=== PATIENT | male | born 1980 | race Caucasian/White ===

== ENCOUNTER 2016-08-10 11:58 | Day surgery (SDC) | payer OTHER ==
--- NOTE | ~2016-08-10 | EGD ---
EGD REPORT [facility] [address] [id number] NAME: TREVIN ZHU : [birth year] STATUS : REG [facility]#: [id number] AGE: 36 ADM/REG DATE : 08/10/16 MR#: [id number] REPORT SERV DATE: 08/10/16 DICTATED BY: HASMUKH ELKINS DATE: 08/10/16 REPORT STATUS : Draft TRANSCRIBED BY: [facility] DATE: 08/10/16 Endoscopy Center Patient Name: Trevin Zhu Date of : 1980 Attending MD: HASMUKH ELKINS MD Procedure Date No Time: 08/10/2016 Procedure: Upper GI endoscopy Indications: Cirrhosis rule out esophageal varices Referring MD: ANKIT Gaitan Medicines: Propofol per Anesthesia Complications: No immediate complications. Procedure: Pre-Anesthesia Assessment: - ASA Grade Assessment: III - A patient with severe systemic disease. After obtaining informed consent, the endoscope was passed under direct vision. Throughout the procedure, the patient's blood pressure, pulse, and oxygen saturations were monitored continuously. The GIF [id number] was introduced through the mouth, and advanced to the second part of duodenum. The upper GI endoscopy was accomplished without difficulty. The patient tolerated the procedure well. Findings: The examined esophagus was normal. There is no endoscopic evidence of varices in the lower third of the esophagus. A few localized, small non-bleeding erosions were found in the gastric body. There were no stigmata of recent bleeding. Biopsies were taken with a cold forceps for histology. Mild portal hypertensive gastropathy was found in the cardia and in the gastric fundus. A few localized erosions without bleeding were found in the first part of the duodenum. Impression: - Normal esophagus. - Non-bleeding erosive gastropathy. Biopsied. - Portal hypertensive gastropathy. - Duodenal erosions without bleeding. Recommendation: - Await pathology results. - Use Zantac 150 OTC (ranitidine) at 150 mg PO AC or PC as needed, max 2 tabs/24 hours for 6 weeks. - Repeat the upper endoscopy in 3 years for screening purposes. EGD REPORT [address] [id number] NAME: TREVIN ZHU : [birth year] STATUS : REG [facility] [place] PAT#: [id number] AGE: 36 ADM/REG DATE : 08/10/16 MR#: [id number] REPORT SERV DATE: 08/10/16 DICTATED BY: HASMUKH ELKINS. DATE: 08/10/16 REPORT STATUS : Draft TRANSCRIBED BY: [employer] DATE: 08/10/16 Procedure Code(s): --- Professional --- 41167, Esophagogastroduodenoscopy, flexible, transoral; with biopsy, single or multiple Diagnosis Code(s): --- Professional --- K31.9, Disease of stomach and duodenum, unspecified K76.6, Portal hypertension K31.89, Other diseases of stomach and duodenum K26.9, Duodenal ulcer, unspecified as acute or chronic, without hemorrhage or perforation K74.60, Unspecified cirrhosis of liver CPT copyright 2013 [employer]. All rights reserved. The codes documented in this report are preliminary and upon consumer relations specialist review may be revised to meet current compliance requirements. HASMUKH ELKINS MD 08/10/2016 1:28 PM This report has been signed electronically. Number of Addenda: 0 Note Initiated On: 08/10/2016 1:18 PM Scope Withdrawal Time 0 hours 0 minutes 0 seconds [id number] [id number]
[~2016-08-10 11:58] MED LIST: ORAZINC110 MG PO; SYPRINE PO; URSO FORTE500 MG PO; VIT B-SIX 50 MG50 MG PO; [UNRECOGNIZED DRUG - OTHER] PO
== END 2016-08-10 23:59 | disposition home or self-care (01) ==
LOC: DMU 11:58
PROVIDERS: Internal Medicine Gastroenterology
PROC: 0DB68ZX Excision of Stomach, Via Natural or Artificial Opening Endoscopic, Diagnostic (ICD-10-PCS; principal; 2016-08-10 15:30)
DX: K29.50 Unspecified chronic gastritis without bleeding (principal); K31.9 Disease of stomach and duodenum, unspecified; K76.6 Portal hypertension; K31.89 Other diseases of stomach and duodenum; K26.9 Duodenal ulcer, unspecified as acute or chronic, without hemorrhage or perforation; Z88.0 Allergy status to penicillin
CPT/HCPCS: 88305; 88342